=== PATIENT | male | born 1995 | race Hispanic/Latino ===

== ENCOUNTER 2020-08-29 08:42 | Emergency (ER) | payer OTHER, SELFPAY ==
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
[2020-08-29 08:47] VITALS: BP 136/82; PULSE 96; RESP 20; TEMP 36.8; O2SAT 98
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
[2020-08-29 11:05] VITALS: BP 132/88; PULSE 80; RESP 20; O2SAT 99
== END 2020-08-29 11:07 | disposition home or self-care (01) ==
PROVIDERS: Emergency Provider Emergency Medicine; Family Provider Pediatrics; PCP Emergency Medicine
DX: S42.432A Displaced fracture (avulsion) of lateral epicondyle of left humerus, initial encounter for closed fracture (principal); W01.198A Fall on same level from slipping, tripping and stumbling with subsequent striking against other object, initial encounter
CPT/HCPCS: 29105; 73080; 99284; A4565

== ENCOUNTER 2020-09-14 17:45 | Outpatient (CLI) | payer OTHER, SELFPAY ==
--- NOTE | ~2020-09-14 | MR_ITS ---
EXAMINATION: MR elbow LT wo con DATE: 09/14/2020 18:54 INDICATION: Left elbow pain post fall one month prior TECHNIQUE: Magnetic resonance imaging (MRI) of the left elbow was performed without intravenous contr ast. Sequences included coronal, axial, and sagittal PD-weighted FS FSE and coronal, axial, and sagit matilde PD-weighted FSE. COMPARISON: Contrast dated 09/08/2020 and 08/29/2020 FINDINGS: Tendons: Triceps and biceps brachii tendons are normal. There is a partial tear of the brachioradialis involvi ng both the distal myotendinous junction as well as portion of the ulnar side of the footplate were a few lax torn fibers are evident. There is however no well-defined proximal or distal tear margin. Th ere is some wispy edema extending into the more proximal brachialis muscle. Mild tendinopathy at the common extensor tendon wad without discrete tear. There is mild tendinopathy and small partial-thickn ess tear at the medial epicondylar origin of the common flexor tendon wad. Ligaments: Partial tear of the posterior distal aspect of the radial collateral ligament. There is also complete avulsion of the humeral side of the lateral ulnar collateral ligament as well as the posterior ulnar attachment of the annular ligament. The detached ligaments are thickened and contain A couple small heterotopic ossicles which are better appreciated on the prior radiographs. There is subtle cortical irregularity and minimal underlying edema in the region of the humeral footplate of the lateral ulnar collateral ligament. There also appears to be at least partial tear at the anterior ulnar attachment of the annular ligament with mild cystic change in the underlying ulna. Likely complete tear of the proximal humeral footplate of the anterior bundle the medial collateral l igament and partial tear of the humeral insertion of the posterior bundle. There is mild cystic tolliver e and surrounding marrow edema along the humeral footplate of the posterior bundle with a large ossic le along the thickened ligament which could represent either scarring heterotopic ossification or pot entially as suggested on a prior radiographs avulsed fragment arising from the footplate. The transve rse bundle the medial collateral ligament appears to remain intact. Osseous/other: Bone alignment is normal. Mild marrow edema at the medial and lateral epicondyles and tiny cyst in th e ulna at the anterior footplate of the annular ligament as detailed above suspicious for sequela of prior avulsion injuries of the medial and lateral collateral ligament complexes. No other lesions marquis picious for fracture. No pathologic marrow replacing process. 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 Cubital tunnel: Cubital tunnel is unremarkable with normal signal and caliber of the ulnar nerve. More distally howev er the ulnar nerve however appears flattened along the posterior margin of the ossicle associated wit h the torn medial collateral ligament complex. Fluid: Small to moderate-sized left elbow joint effusion. IMPRESSION: 1. Tears/avulsion injuries of both the medial and lateral collateral ligament complexes as detailed a ame. 2. Moderate grade brachialis sprain with small partial avulsion along its ulnar insertion. 3. Mild tendinopathy of the common flexor and extensor tendon wads with small partial-thickness tear of the former. 4. Ulnar collateral ligament appears flattened distal to the cubital tunnel along the posterior vadim n of an ossification likely either a small avulsion fracture fragment or secondary heterotopic ossifi cation in the torn medial collateral ligament complex. 5. Small to moderate-sized left elbow joint effusion. Reviewed, dictated and finalized at location A. 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
== END 2020-09-14 17:46 ==
PROVIDERS: Visit Provider Orthopaedic Surgery
DX: S59.902A Unspecified injury of left elbow, initial encounter (principal); M24.822 Other specific joint derangements of left elbow, not elsewhere classified; S53.492A Other sprain of left elbow, initial encounter; M25.422 Effusion, left elbow
CPT/HCPCS: 73221

== ENCOUNTER 2025-05-10 17:55 | Emergency (ER) | payer OTHER, SELFPAY ==
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
[2025-05-10 18:09] VITALS: BP 144/82; PULSE 91; RESP 16; TEMP 36.7; O2SAT 99
== END 2025-05-10 20:00 | disposition home or self-care (01) ==
PROVIDERS: Emergency Provider Nurse Practitioner; PCP Emergency Medicine
DX: M54.50 Low back pain, unspecified (principal); M25.571 Pain in right ankle and joints of right foot; V49.9XXA Car occupant (driver) (passenger) injured in unspecified traffic accident, initial encounter; F17.210 Nicotine dependence, cigarettes, uncomplicated; F12.90 Cannabis use, unspecified, uncomplicated
CPT/HCPCS: 72100; 73610; 99214; G0463